=== PATIENT | female | born 1995 | race Two or more races ===

== ENCOUNTER 2023-12-07 06:31 | Emergency (ER) | payer MEDICAID ==
[~2023-12-07] VITALS: Ht 165.1 cm; Wt 87.6 kg
[2023-12-07] MEDS ORDERED: IBUP-1456 PO (07:46)
[2023-12-07 07:58] VITALS: BP 117/56; PULSE 80; RESP 18; TEMP 99.3; O2SAT 98
== END 2023-12-07 08:19 | disposition home or self-care (01) ==
LOC: ER 06:31
DX: M77.8 Other enthesopathies, not elsewhere classified (principal); Z79.899 Other long term (current) drug therapy
CPT/HCPCS: 29125; 73110